=== PATIENT | female | born 1950 | race Caucasian/White ===

== ENCOUNTER 2020-10-26 19:54 | Inpatient (IN) | payer MEDICARE ==
[~2020-10-26] VITALS: Ht 163 cm; Wt 70.0 kg
[2020-10-26 21:22] LABS: BASOPHIL 0.8 % (0-2); HCT 32.4 % (37.0-47.0); HGB 11.2 g/dl (12.5-16.0); LYMPHOCYTE 17.6 % (15-48); MCH 32.3 pg (25.0-31.0); MCHC 34.6 g/dL (32.0-36.0); MCV 93.4 fL (78.0-100.0); MONOCYTE 4.8 % (0-12); MPV 10.7 fL (6.0-9.5); NEUTROPHIL 75.5 % (41-80); NRBC 0; PLT 226 K/uL (150-400); RBC 3.47 M/uL (4.20-5.40); WBC 9.2 K/uL (4.0-10.5)
[2020-10-26 21:32] LABS: ALBUMIN 3.9 g/dL (3.4-5.0); BILIRUBIN - TOTAL 0.4 mg/dL (0.2-1.0); BUN/CREAT RATIO (CALC) 33.3 RATIO; CREATININE 1.35 mg/dL (0.51-0.95); GLOBULIN (CALCULATION) 3.2 g/dL; POTASSIUM 4.3 mmol/L (3.5-5.1); TOTAL PROTEIN 7.1 g/dL (6.4-8.2)
[2020-10-26 22:07] LABS: BILIRUBIN NEGATIVE (NEGATIVE); BLOOD NEGATIVE Ery/uL (NEGATIVE); CLARITY CLEAR (CLEAR); COLOR YELLOW (YELLOW); GLUCOSE (U) NORMAL (NORMAL); LEUKOCYTES NEGATIVE Leu/uL (NEGATIVE); NITRITE NEGATIVE (NEGATIVE); PROTEIN NEGATIVE (NEGATIVE); UROBILINOGEN 0.2 mg/dL (0.2-1.0); pH 5.5 (5.0-9.0)
[2020-10-27 05:58] LABS: BASOPHIL 0.7 % (0-2); EOSINOPHIL 0.5 % (0-7); HCT 29.1 % (37.0-47.0); LYMPHOCYTE 12.4 % (15-48); MCH 32.4 pg (25.0-31.0); MCHC 34.4 g/dL (32.0-36.0); MCV 94.2 fL (78.0-100.0); MONOCYTE 6.3 % (0-12); MPV 10.4 fL (6.0-9.5); NEUTROPHIL 79.8 % (41-80); NRBC 0; PLT 191 K/uL (150-400); RBC 3.09 M/uL (4.20-5.40); RDW 12.1 % (11.5-14.0); WBC 9.7 K/uL (4.0-10.5)
[2020-10-27 06:20] LABS: ALBUMIN 3.4 g/dL (3.4-5.0); BILIRUBIN - TOTAL 0.5 mg/dL (0.2-1.0); BUN/CREAT RATIO (CALC) 36.4 RATIO; CREATININE 1.29 mg/dL (0.51-0.95); GLOBULIN (CALCULATION) 2.7 g/dL; POTASSIUM 4.4 mmol/L (3.5-5.1); TOTAL PROTEIN 6.1 g/dL (6.4-8.2)
--- NOTE | 2020-10-27 13:02 | NUR ---
[address] KOCH NOTIFIED OF CT RESULTS PER HIS REQUEST. NO NEW ORDERS AT THIS TIME.
[2020-10-28 05:44] LABS: BASOPHIL 0.6 % (0-2); EOSINOPHIL 1.1 % (0-7); HCT 25.6 % (37.0-47.0); HGB 8.6 g/dl (12.5-16.0); LYMPHOCYTE 17.3 % (15-48); MCH 31.7 pg (25.0-31.0); MCHC 33.6 g/dL (32.0-36.0); MCV 94.5 fL (78.0-100.0); MONOCYTE 5.3 % (0-12); MPV 10.2 fL (6.0-9.5); NEUTROPHIL 75.5 % (41-80); NRBC 0; PLT 126 K/uL (150-400); RBC 2.71 M/uL (4.20-5.40); WBC 8.3 K/uL (4.0-10.5)
[2020-10-28 06:04] LABS: ALBUMIN 2.9 g/dL (3.4-5.0); BILIRUBIN - TOTAL 0.4 mg/dL (0.2-1.0); CREATININE 0.82 mg/dL (0.51-0.95); GLOBULIN (CALCULATION) 2.9 g/dL; POTASSIUM 3.8 mmol/L (3.5-5.1); TOTAL PROTEIN 5.8 g/dL (6.4-8.2)
[2020-10-28] MEDS ORDERED: PERCOCET 5-3251 EACH PO (07:50)
[2020-10-28 16:32] LABS: HCT 23.4 % (37.0-47.0); HGB 8.2 g/dl (12.5-16.0); MCV 91.4 fL (78.0-100.0); MPV 10.5 fL (6.0-9.5); RBC 2.56 M/uL (4.20-5.40); WBC 15.3 K/uL (4.0-10.5)
[2020-10-28] MEDS ORDERED: ASPIRIN EC81 MG PO (17:54)
[2020-10-28] MEDS ORDERED: VITAMIN B-6100 MG PO (17:57)
[2020-10-28] MEDS ORDERED: CAL-CITRATE PL1 EACH PO (18:00)
[2020-10-28] MEDS ORDERED: VITAMIN D325 MC2 PO (18:01)
[2020-10-28] MEDS ORDERED: LOVAZA1 GM PO (18:02)
[2020-10-28] MEDS ORDERED: IRON 100 PLUS1 EACH PO (18:05)
[2020-10-28] MEDS ORDERED: VITAMIN B-121000 MC1 PO (18:06)
[2020-10-28] MEDS ORDERED: SYNTHROID100 MCG PO (18:08)
[2020-10-28] MEDS ORDERED: PRINIVIL20 MG PO (18:09)
[2020-10-28] MEDS ORDERED: ZOLOFT 25MG TAB25 MG PO (18:09)
[2020-10-28] MEDS ORDERED: CRESTOR10 MG PO (18:10)
[2020-10-29 07:41] LABS: HCT 17.3 % (37.0-47.0); MCH 32.4 pg (25.0-31.0); MCHC 34.7 g/dL (32.0-36.0); MCV 93.5 fL (78.0-100.0); MPV 10.6 fL (6.0-9.5); RBC 1.85 M/uL (4.20-5.40); RDW 12.2 % (11.5-14.0); WBC 7.6 K/uL (4.0-10.5)
[2020-10-29 20:17] LABS: HCT 29.5 % (37.0-47.0); HGB 9.8 g/dL (12.5-16.0)
[2020-10-30 06:14] LABS: HCT 25.3 % (37.0-47.0); MCH 32.5 pg (25.0-31.0); MCHC 35.6 g/dL (32.0-36.0); MCV 91.3 fL (78.0-100.0); MPV 10.4 fL (6.0-9.5); RBC 2.77 M/uL (4.20-5.40); RDW 13.4 % (11.5-14.0); WBC 7.8 K/uL (4.0-10.5)
[2020-10-30 06:27] LABS: BUN/CREAT RATIO (CALC) 17.7 RATIO; CREATININE 0.79 mg/dL (0.51-0.95); POTASSIUM 3.8 mmol/L (3.5-5.1)
--- NOTE | 2020-10-30 12:08 | NUR ---
MET WITH PT. SHE CHOSE [facility] FOR RW AND 08/20. PT SIGNED CHOICE FORM AND AFFLIATION EXPLAINED. REQUEST FAXED TO [facility] REQUEST ENTERED INTO [facility]
[2020-10-31 07:23] LABS: BASOPHIL 0.5 % (0-2); EOSINOPHIL 2.1 % (0-7); HCT 29.7 % (37.0-47.0); HGB 10.2 g/dl (12.5-16.0); LYMPHOCYTE 19.4 % (15-48); MCH 32.2 pg (25.0-31.0); MCHC 34.3 g/dL (32.0-36.0); MCV 93.7 fL (78.0-100.0); MONOCYTE 6.2 % (0-12); MPV 10.4 fL (6.0-9.5); NRBC 0.5; PLT 145 K/uL (150-400); RBC 3.17 M/uL (4.20-5.40); RDW 13.5 % (11.5-14.0); WBC 9.9 K/uL (4.0-10.5)
[2020-10-31 07:38] LABS: BUN/CREAT RATIO (CALC) 20.3 RATIO; CREATININE 0.79 mg/dL (0.51-0.95); POTASSIUM 3.8 mmol/L (3.5-5.1)
[2020-10-31] MEDS ORDERED: ULTRA-LIGHT RO1 EACH XX (08:44)
[2020-10-31] MEDS ORDERED: 3IN1 COMMODE XX (08:44)
[2020-10-31] MEDS ORDERED: FEOSOL325 MG PO (08:50)
[2020-10-31] MEDS ORDERED: OXYCODONE-ACET1 EAC1 PO (08:50)
== END 2020-10-31 11:58 | disposition home health service (06) | DRG 481 ==
LOC: FER 19:54 → FMS 21:31
PROVIDERS: Emergency Medicine; Hospitalist; Nurse Practitioner; Nurse Practitioner Adult Health; Orthopaedic Surgery; ADMIT Internal Medicine
PROC: 0QS606Z Reposition Right Upper Femur with Intramedullary Internal Fixation Device, Open Approach (ICD-10-PCS; principal; 2020-10-28 08:40)
PROC: 30233N1 Transfusion of Nonautologous Red Blood Cells into Peripheral Vein, Percutaneous Approach (ICD-10-PCS; 2020-10-29)
DX: S72.21XA Displaced subtrochanteric fracture of right femur, initial encounter for closed fracture (principal); D62 Acute posthemorrhagic anemia; N17.9 Acute kidney failure, unspecified; I10 Essential (primary) hypertension; E78.5 Hyperlipidemia, unspecified; E03.9 Hypothyroidism, unspecified; Z20.822 Contact with and (suspected) exposure to COVID-19; F17.210 Nicotine dependence, cigarettes, uncomplicated; M81.0 Age-related osteoporosis without current pathological fracture; M41.9 Scoliosis, unspecified; E55.9 Vitamin D deficiency, unspecified; Z88.0 Allergy status to penicillin; Z98.890 Other specified postprocedural states; Z90.49 Acquired absence of other specified parts of digestive tract; Z79.82 Long term (current) use of aspirin; Z79.899 Other long term (current) drug therapy; W18.30XA Fall on same level, unspecified, initial encounter; Y92.000 Kitchen of unspecified non-institutional (private) residence as the place of occurrence of the external cause; Z90.13 Acquired absence of bilateral breasts and nipples; Z98.51 Tubal ligation status
CPT/HCPCS: 36415; 36430; 71045; 73501; 73502; 73700; 76000; 80048; 80053; 81003; 85014; 85018; 85025; 86850; 86900; 86901; 86922; 93005; 94010; 96374; 96375; 97110; 97162; 97166; 97530; 97530-GP; 97535; C1713; C9113; J0697; J1100; J1170; J1650; J1885; J2250; J2270; J2405; J2704; J3010; J7030; J7120; P9016; U0002

== ENCOUNTER 2021-04-05 10:47 | Emergency (ER) | payer MEDICARE ==
[~2021-04-05 10:47] MED LIST: 3IN1 COMMODE XX; ASPIRIN EC81 MG PO; CAL-CITRATE PL1 EACH PO; CRESTOR10 MG PO; FEOSOL325 MG PO; IRON 100 PLUS1 EACH PO; LOVAZA1 GM PO; OXYCODONE-ACET1 EAC1 PO; PERCOCET 5-3251 EACH PO; PRINIVIL20 MG PO; SYNTHROID100 MCG PO; ULTRA-LIGHT RO1 EACH XX; VITAMIN B-121000 MC1 PO; VITAMIN B-6100 MG PO; VITAMIN D325 MC2 PO; ZOLOFT 25MG TAB25 MG PO
[2021-04-05 11:51] LABS: BASOPHIL 1.1 % (0-2); HCT 28.7 % (37.0-47.0); HGB 9.1 g/dl (12.5-16.0); LYMPHOCYTE 17.3 % (15-48); MCH 30.8 pg (25.0-31.0); MCHC 31.7 g/dL (32.0-36.0); MCV 97.3 fL (78.0-100.0); MONOCYTE 2.2 % (0-12); MPV 9.4 fL (6.0-9.5); NRBC 0; PLT 414 K/uL (150-400); RBC 2.95 M/uL (4.20-5.40); RDW 13.8 % (11.5-14.0); WBC 7.2 K/uL (4.0-10.5)
[2021-04-05 12:08] LABS: ALBUMIN 3.3 g/dL (3.4-5.0); BILIRUBIN - TOTAL 0.5 mg/dL (0.2-1.0); CREATININE 1.35 mg/dL (0.51-0.95); GLOBULIN (CALCULATION) 4.8 g/dL; POTASSIUM 3.3 mmol/L (3.5-5.1); TOTAL PROTEIN 8.1 g/dL (6.4-8.2)
[2021-04-05 12:33] LABS: CORONAVIRUS 2019 SARS-COV-2 NEGATIVE (NEGATIVE); INFLUENZA A NAA NEGATIVE (NEGATIVE)
[2021-04-05 13:22] LABS: BILIRUBIN NEGATIVE (NEGATIVE); BLOOD NEGATIVE Ery/uL (NEGATIVE); CLARITY CLEAR (CLEAR); COLOR YELLOW (YELLOW); GLUCOSE (U) NORMAL (NORMAL); LEUKOCYTES NEGATIVE Leu/uL (NEGATIVE); NITRITE NEGATIVE (NEGATIVE); PROTEIN NEGATIVE (NEGATIVE); SPECIFIC GRAVITY 1.015 (1.001-1.030); UROBILINOGEN 0.2 mg/dL (0.2-1.0)
== END 2021-04-05 13:47 | disposition home or self-care (01) ==
LOC: FER 10:47
PROVIDERS: Internal Medicine
DX: E86.0 Dehydration (principal); R11.2 Nausea with vomiting, unspecified; Z86.16 Personal history of COVID-19; Z88.0 Allergy status to penicillin; Z87.891 Personal history of nicotine dependence; Z20.822 Contact with and (suspected) exposure to COVID-19
CPT/HCPCS: 36415; 71045; 80053; 81003; 84145; 85025; J0780; J7030; U0002

== ENCOUNTER → 2021-07-23 | Day surgery (SDC) | payer MEDICARE ==
[~2021-07-23] VITALS: Ht 163 cm; Wt 55.3 kg
[2021-07-23 10:54] LABS: HCT 25.6 % (37.0-47.0); HGB 8.9 g/dl (12.5-16.0); MCH 37.7 pg (25.0-31.0); MCHC 34.8 g/dL (32.0-36.0); MCV 108.5 fL (78.0-100.0); MPV 10.5 fL (6.0-9.5); RBC 2.36 M/uL (4.20-5.40); RDW 16.9 % (11.5-14.0)
[2021-07-23 11:00] LABS: WBC 1.5 K/uL (4.0-10.5)
[2021-07-23 11:25] LABS: INR 1.16 (0.9-1.2); PROTHROMBIN TIME 14.2 SECONDS (11.8-13.4); PTT 32.6 SECONDS (24.4-34.7)
[2021-07-23 11:36] LABS: ALBUMIN 3.3 g/dL (3.4-5.0); BILIRUBIN - TOTAL 0.4 mg/dL (0.2-1.0); BUN/CREAT RATIO (CALC) 22.4 RATIO; CREATININE 0.76 mg/dL (0.51-0.95); TOTAL PROTEIN 6.3 g/dL (6.4-8.2)
[2021-07-23 11:45] LABS: BILIRUBIN NEGATIVE (NEGATIVE); BLOOD NEGATIVE Ery/uL (NEGATIVE); CLARITY HAZY (CLEAR); COLOR YELLOW (YELLOW); GLUCOSE (U) NORMAL (NORMAL); LEUKOCYTES NEGATIVE Leu/uL (NEGATIVE); NITRITE NEGATIVE (NEGATIVE); PROTEIN NEGATIVE (NEGATIVE); SPECIFIC GRAVITY 1.015 (1.001-1.030); UROBILINOGEN 0.2 mg/dL (0.2-1.0)
== END | disposition home or self-care (01) ==
LOC: FAS 09:06
PROVIDERS: Orthopaedic Surgery
DX: M85.852 Other specified disorders of bone density and structure, left thigh (principal); Z88.0 Allergy status to penicillin; Z91.09 Other allergy status, other than to drugs and biological substances
CPT/HCPCS: 36415; 73501; 76000; 80053; 81003; 85610; 85730; 93005; 97162; 97530-GP; C1713; J0697; J1170; J2250; J2405; J2704; J3010; J3370; J7050; J7120

== ENCOUNTER 2021-07-30 11:07 | Emergency (ER) | payer MEDICARE ==
[2021-07-30] MEDS ORDERED: NORCO 5-325 TA1 EACH PO ×3 (13:55→18:02)
== END 2021-07-30 14:04 | disposition home or self-care (01) ==
LOC: FER 11:07
DX: M25.552 Pain in left hip (principal)
CPT/HCPCS: 73502; 73552

== ENCOUNTER 2022-03-11 12:06 | Emergency (ER) | payer OTHER, MEDICARE ==
[~2022-03-11 12:06] MED LIST changes: +NORCO 5-325 TA1 EACH PO
[2022-03-11 13:27] LABS: BASOPHIL 1.8 % (0-2); EOSINOPHIL 0 % (0-7); HCT 23.8 % (37.0-47.0); HGB 7.9 g/dl (12.5-16.0); LYMPHOCYTE 11.2 % (15-48); MCH 37.1 pg (25.0-31.0); MCHC 33.2 g/dL (32.0-36.0); MCV 111.7 fL (78.0-100.0); MONOCYTE 7.1 % (0-12); MPV 11.3 fL (6.0-9.5); NEUTROPHIL 79.3 % (41-80); NRBC 0; PLT 154 K/uL (150-400); RBC 2.13 M/uL (4.20-5.40); RDW 15.9 % (11.5-14.0)
[2022-03-11 13:33] LABS: WBC 1.7 K/uL (4.0-10.5)
[2022-03-11 13:48] LABS: BUN/CREAT RATIO (CALC) 25.4 RATIO; CREATININE 0.67 mg/dL (0.51-0.95); POTASSIUM 4.1 mmol/L (3.5-5.1)
[2022-03-11 14:00] LABS: BILIRUBIN NEGATIVE (NEGATIVE); BLOOD NEGATIVE Ery/uL (NEGATIVE); CLARITY CLEAR (CLEAR); COLOR YELLOW (YELLOW); GLUCOSE (U) NORMAL (NORMAL); LEUKOCYTES 1+ Leu/uL (NEGATIVE); NITRITE NEGATIVE (NEGATIVE); PROTEIN NEGATIVE (NEGATIVE); UROBILINOGEN 0.2 mg/dL (0.2-1.0)
[2022-03-11 14:12] LABS: BACTERIA 1+
[2022-03-11 14:15] LABS: CORONAVIRUS 2019 SARS-COV-2 NEGATIVE (NEGATIVE); INFLUENZA A NAA NEGATIVE (NEGATIVE)
== END 2022-03-11 21:04 | disposition home or self-care (01) ==
LOC: FER 12:06
PROVIDERS: Nurse Practitioner Family
DX: D64.9 Anemia, unspecified (principal); R06.02 Shortness of breath; I10 Essential (primary) hypertension; F17.200 Nicotine dependence, unspecified, uncomplicated; Z20.822 Contact with and (suspected) exposure to COVID-19; Z90.49 Acquired absence of other specified parts of digestive tract; Z90.710 Acquired absence of both cervix and uterus; Z98.890 Other specified postprocedural states; Z88.0 Allergy status to penicillin
CPT/HCPCS: 36415; 36430; 71046; 71275; 80048; 81001; 83605; 84145; 84484; 85025; 85379; 86850; 86900; 86901; 86922; 87040; 93005; J7050; P9016; Q9967; U0002